=== PATIENT | male | born 1960 | race Caucasian/White ===

== ENCOUNTER 2017-02-24 16:45 | Emergency (ER) | payer OTHER ==
[2017-02-24] MEDS ORDERED: Albuterol/Ipratropium 3.0-0.5 MG/3 ML Neb Soln NEB ONE (17:09)
[2017-02-24] MEDS ORDERED: Sodium Chloride 0.9% 10 ML Syringe FLUSH PRN (17:10)
[2017-02-24] MEDS ORDERED: methylPREDNISolone Sodium Succinate 125 MG/2 ML SDV IVPUSH ONE (17:10)
[2017-02-24] MEDS ORDERED: Sodium Chloride 0.9% 2.5 ML Syringe FLUSH PRN (17:10)
[2017-02-24] MEDS ORDERED: Sodium Chloride 0.9% 1,000 ML IV ONE (17:10)
--- NOTE | 2017-02-24 17:13 | EDM.PDOC ---
ED HPI GENERAL MEDICAL PROBLEM - General Chief Complaint: Respiratory Problem Stated Complaint: COUGH/CONGESTION Time Seen by Provider: 02/24/17 17:09 - History of Present Illness INITIAL COMMENTS - FREE TEXT/NARRATIVE: HISTORY AND PHYSICAL: History of present illness: The patient is a 56-year-old male with a long history of tobacco use, up to 2 packs a day, who presents with complaints of cough that started last evening which is mostly dry and hacking but occasionally productive of phlegm. He has not had a fever nausea or vomiting. The patient says that today he has felt more short of breath especially when he is coughing but not sitting here at rest and he has no chest pain or abdominal pain. The patient says he started feeling a slight scratchiness to his throat and starting feeling rundown 2 days prior to yesterday any new "that something was going to develop". He says he doesn't have asthma or COPD and doesn't get chronic bronchitis. He is eating and drinking normally. He has not taken any [id number] medications at this point. The patient follows at [facility] with Dr. Bell. The patient denies any cardiac problems to me as well. Review of systems: As per history of present illness and below otherwise all systems reviewed and negative. Past medical history: As per history of present illness and as reviewed below otherwise noncontributory. Surgical history: As per history of present illness and as reviewed below otherwise noncontributory. Social history: No reported history of drug or alcohol abuse. Family history: As per history of present illness and as reviewed below otherwise noncontributory. Physical exam: Gen.: Well-developed well-nourished man speaking with nasal quality to voice and has a dry hacking type cough on my evaluation. On triage his O2 sat on room air was 94% but when I went in the room it was 90%. HEENT: Atraumatic, normocephalic, pupils reactive, negative for conjunctival pallor or scleral icterus, mucous membranes moist, throat clear, neck supple, nontender, trachea midline. There is no cervical adenopathy or nuchal rigidity Lungs: Clear to auscultation but very diminished throughout especially the bases and there is no stridor or wheezing and no worker breathing, breath sounds equal bilaterally, chest nontender. Heart: S1S2, regular rate and rhythm no overt murmurs Abdomen: Soft, nondistended, nontender. NABS Skin: No evidence of any diaphoresis and turgor is normal Genitourinary: Deferred. Rectal: Deferred. Extremities: Atraumatic, negative for cords or calf pain. Neurovascular unremarkable. Neuro: Awake, alert, oriented. Cranial nerves II through XII unremarkable. Cerebellum unremarkable. Motor and sensory unremarkable throughout. Exam nonfocal. Diagnostics: CBC CMP chest x-ray influenza swab Therapeutics: IV IV fluids duo neb Solu-Medrol After the nebulizer treatment patient is moving air much better with good air exchange in all marks and no wheezing or stridor. The O2 sat on room air is currently 95%. The patient states he feels significantly improved. I've talked to him about an inhaler for home with a spacer as well as prednisone and antibiotics. We are currently awaiting the chest x-ray results to determine antibiotic treatment and length. Impression: Bronchitis with bronchospasm improved, long history of tobacco use Definitive disposition and diagnosis as appropriate pending reevaluation and review of above. Generalized Pain Score (Numeric/FACES): 2 - Related Data Allergies Allergy/AdvReac Type Severity Reaction Status Date / Time No Known Allergies Allergy Verified 02/24/17 16:59 Home Meds: Home Meds . [No Known Home Meds] 02/24/17 [History] Past Medical History - Past Health History Medical/Surgical History: Denies Medical/Surgical History - Infectious Disease History Infectious Disease History: Reports: Chicken Pox Social & Family History - Family History Family Medical History: Noncontributory - Tobacco Use Smoking Status *Q: Current Every Day Smoker Years of Tobacco use: 30 Packs/Tins Daily: 1 - Caffeine Use Caffeine Use: Reports: Coffee - Recreational Drug Use Recreational Drug Use: No ED ROS GENERAL - Review of Systems Review Of Systems: ROS reveals no pertinent complaints other than HPI. ED EXAM, GENERAL - Physical Exam Exam: See Below (See dictation) Course - Vital Signs Last Recorded V/S: Last Vital Signs Temp 36.9 C 02/24/17 16:54 Pulse 85 02/24/17 18:10 Resp 16 02/24/17 18:10 BP 118/65 02/24/17 18:10 Pulse Ox 95 02/24/17 18:10 - Orders/Labs/Meds Orders: Active Orders 24 hr Category Date Time Status RT Aerosol Therapy [RC] ASDIRECTED Care 02/24/17 17:10 Active Chest 2V [CR] Stat Exams 02/24/17 17:10 Taken Sodium Chloride 0.9% [Saline Flush] Med 02/24/17 17:10 Active 10 ml FLUSH ASDIRECTED PRN Sodium Chloride 0.9% [Saline Flush] Med 02/24/17 17:10 Active 2.5 ml FLUSH ASDIRECTED PRN Saline Lock Insert [OM.PC] Stat Oth 02/24/17 17:09 Ordered Medication Orders Sodium Chloride (Saline Flush) 10 ml FLUSH ASDIRECTED PRN PRN Reason: Keep Vein Open Sodium Chloride (Saline Flush) 2.5 ml FLUSH ASDIRECTED PRN PRN Reason: Keep Vein Open Labs: Laboratory Tests 02/24/17 02/24/17 Range/Units 17:30 17:30 WBC 12.66 H (4.0-11.0) K/uL RBC 5.24 (4.50-5.90) M/uL Hgb 16.2 (13.0-17.0) g/dL Hct 47.9 (38.0-50.0) % MCV 91.4 (80.0-98.0) fL MCH 30.9 (27.0-32.0) pg MCHC 33.8 (31.0-37.0) g/dL RDW Std Deviation 46.7 (28.0-62.0) fl RDW Coeff of [place] 14 (11.0-15.0) % Plt Count 249 (150-400) K/uL MPV 10.60 (7.40-12.00) fL Neut % (Auto) 69.1 (48.0-80.0) % Lymph % (Auto) 21.3 (16.0-40.0) % [place] % (Auto) 7.7 (0.0-15.0) % Eos % (Auto) 1.3 (0.0-7.0) % Baso % (Auto) 0.6 (0.0-1.5) % Neut # (Auto) 8.8 H (1.4-5.7) K/uL Lymph # (Auto) 2.7 H (0.6-2.4) K/uL [place] # (Auto) 1.0 H (0.0-0.8) K/uL Eos # (Auto) 0.2 (0.0-0.7) K/uL Baso # (Auto) 0.1 (0.0-0.1) K/uL Nucleated RBC % 0.0 /100WBC Nucleated RBCs # 0 K/uL Sodium 140 (136-146) mmol/L Potassium 3.7 (3.5-5.1) mmol/L Chloride 104 (98-110) mmol/L Carbon Dioxide 29 (21-31) mmol/L BUN 12 (6.0-23.0) mg/dL Creatinine 1.3 (0.6-1.5) mg/dL Est Cr Clr Drug Dosing 64.20 mL/min Estimated GFR (MDRD) 57.3 ml/min Glucose 122 H (60-110) mg/dL Calcium 9.7 (8.8-10.8) mg/dL Total Bilirubin 0.3 (0.1-1.5) mg/dL AST 17 (5-40) IU/L ALT 14 (8-54) IU/L Alkaline Phosphatase 94 (40-150) Total Protein 7.3 (6.0-8.0) g/dL Albumin 4.1 (3.5-5.0) g/dL Globulin 3.2 (2.0-3.5) g/dL Albumin/Globulin Ratio 1.3 (1.3-2.8) Meds: Medications Generic Name Dose Route Start Last Admin Trade Name Freq PRN Reason Stop Dose Admin Sodium Chloride 10 ml 02/24/17 17:10 Saline Flush FLUSH ASDIRECTED PRN Keep Vein Open Sodium Chloride 2.5 ml 02/24/17 17:10 Saline Flush FLUSH ASDIRECTED PRN Keep Vein Open Discontinued Medications Generic Name Dose Route Start Last Admin Trade Name Freq PRN Reason Stop Dose Admin Albuterol/Ipratropium 3 ml 02/24/17 17:09 02/24/17 17:40 Duoneb 3.0-0.5 Mg/3 Ml NEB 02/24/17 17:10 3 ml ONETIME ONE Administration Sodium Chloride 1,000 mls @ 999 mls/hr 02/24/17 17:10 02/24/17 17:32 Normal Saline IV 02/24/17 18:10 999 mls/hr STAT ONE Administration Methylprednisolone Sodium Succinate 125 mg 02/24/17 17:10 02/24/17 17:52 Solu-Medrol IVPUSH 02/24/17 17:11 125 mg ONETIME ONE Administration Departure - Departure Time of Disposition: 18:33 Disposition: Home, Self-Care 01 Condition: Good Clinical Impression: Bronchitis, acute, with bronchospasm - Discharge Information Referrals: Luis Bell MD [Primary Care Provider] - Forms: ED Department Discharge Additional Instructions: The following information is given to patients seen in the emergency department who are being discharged to home. This information is to outline your options for follow-up care. We provide all patients seen in our emergency department with a follow-up referral. The need for follow-up, as well as the timing and circumstances, are variable depending upon the specifics of your emergency department visit. If you don't have a primary care physician on staff, we will provide you with a referral. We always advise you to contact your personal physician following an emergency department visit to inform them of the circumstance of the visit and for follow-up with them and/or the need for any referrals to a consulting specialist. The emergency department will also refer you to a specialist when appropriate. This referral assures that you have the opportunity for followup care with a specialist. All of these measure are taken in an effort to provide you with optimal care, which includes your followup. Under all circumstances we always encourage you to contact your private physician who remains a resource for coordinating your care. When calling for followup care, please make the office aware that this follow-up is from your recent emergency room visit. If for any reason you are refused follow-up, please contact the emergency department at and ask to speak to the emergency department charge nurse. [address] [place] [address] [facility] Primary care- Internal Medicine and Family [place] [id number] [place] [id number] Please use all medications as prescribed here at please try to reduce or refrain from smoking anymore. Please call and follow-up with Dr. Siewert in the clinic next week as we discussed. If you feel more comfortable you can call and see him tomorrow as he is in the clinic. Return to ER as needed and as discussed. Push hydration and try to avoid caffeinated products - My Orders Last 24 Hours: My Active Orders 02/24/17 17:09 Saline Lock Insert [OM.PC] Stat 02/24/17 17:10 RT Aerosol Therapy [RC] ASDIRECTED Chest 2V [CR] Stat Sodium Chloride 0.9% [Saline Flush] 10 ml FLUSH ASDIRECTED PRN Sodium Chloride 0.9% [Saline Flush] 2.5 ml FLUSH ASDIRECTED PRN - Assessment/Plan Last 24 Hours: My Active Orders 02/24/17 17:09 Saline Lock Insert [OM.PC] Stat 02/24/17 17:10 RT Aerosol Therapy [RC] ASDIRECTED Chest 2V [CR] Stat Sodium Chloride 0.9% [Saline Flush] 10 ml FLUSH ASDIRECTED PRN Sodium Chloride 0.9% [Saline Flush] 2.5 ml FLUSH ASDIRECTED PRN
[2017-02-24 19:27] VITALS: BP 121/74
--- NOTE | 2017-02-25 10:52 | CR ---
EXAM DATE: 02/24/17 PATIENT'S AGE: 56 Patient: RENEA STERLING Facility: [place], [place] Site . Site : 1960 Study: XRay Chest [id number]/14/2017 6:10:44 PM Ordering Physician: Baldo Richards Final Report: INDICATION: pain/sob TECHNIQUE: Chest 2 views. COMPARISON: None. FINDINGS: Cardiovascular and mediastinum: Heart size and vasculature are normal in caliber and appearance. Mediastinum is within normal limits. Lungs and pleural spaces: Lungs are clear. No sign of infiltrate or mass. No sign of pleural effusion. No pneumothorax. Bones and soft tissues: No significant findings. IMPRESSION: Unremarkable chest. Dictated by: Jacoby Molina MD @ 02/24/2017 18:31:27 (Electronic Signature) Report Signed by Proxy. [facility] SYSTEM[facility]izett
== END 2017-02-24 19:07 | disposition home or self-care (01) ==
LOC: MW.ED 16:45
DX: J20.9 Acute bronchitis, unspecified (principal); F17.210 Nicotine dependence, cigarettes, uncomplicated
CPT/HCPCS: 71020; 80053; 85025; 87804; 94664; 96361; 96374; 99283; J2930; J7040

== ENCOUNTER 2017-04-23 08:18 | Emergency (ER) | payer OTHER ==
[2017-04-23] MEDS ORDERED: Ketorolac 30 MG/ML SDV IVPUSH ONE (08:37)
[2017-04-23] MEDS ORDERED: Sodium Chloride 0.9% 10 ML Syringe FLUSH PRN (08:37)
[2017-04-23] MEDS ORDERED: Dicyclomine 10 MG Cap PO ONE (08:37)
[2017-04-23] MEDS ORDERED: Sodium Chloride 0.9% 1,000 ML IV ONE ×2 (08:37→10:40)
[2017-04-23] MEDS ORDERED: Sodium Chloride 0.9% 2.5 ML Syringe FLUSH PRN (08:37)
--- NOTE | 2017-04-23 08:39 | EDM.PDOC ---
ED HPI GENERAL MEDICAL PROBLEM - General Chief Complaint: Abdominal Pain Stated Complaint: VOMITING(COLD) Time Seen by Provider: 04/23/17 08:27 - History of Present Illness INITIAL COMMENTS - FREE TEXT/NARRATIVE: HISTORY AND PHYSICAL: History of present illness: The patient is a 56-year-old male with no abdominal surgical history and a history of a screening colonoscopy which was normal and presents with complaints of left lower abdominal pain and no bowel movement for the last 3 days. Patient had some vomiting on Tuesday when the pain started and the constipation started but has not vomited since that time. Patient has not had much of an appetite since then and has had decreased by mouth due to the discomfort and concerns. Patient has not had a fever chills cough chest pain or shortness of breath no flank pain and no urinary complaints. Patient says he normally has a bowel movement daily that is not hard and he doesn't have a history of constipation. The patient has had one episode of diverticulitis in the past was many years ago and he doesn't recall how much pain he had or the character of the pain and if this is similar. The patient tried an enema but no oral medications to try to get his bowels moving. He says it was not successful. He has not had recent black or bloody stools. Patient states he is belching but he is not passing much gas from below. Review of systems: As per history of present illness and below otherwise all systems reviewed and negative. Past medical history: As per history of present illness and as reviewed below otherwise noncontributory. Surgical history: As per history of present illness and as reviewed below otherwise noncontributory. Social history: No reported history of drug or alcohol abuse. Family history: As per history of present illness and as reviewed below otherwise noncontributory. Physical exam: Gen.: Well-developed well-nourished man who looks nontoxic and moves easily in the ED without distress. Vital signs have been reviewed by me HEENT: Atraumatic, normocephalic, negative for conjunctival pallor or scleral icterus, mucous membranes moist, throat clear, neck supple, nontender, trachea midline. Lungs: Clear to auscultation, breath sounds equal bilaterally, chest nontender. Heart: S1S2, regular, negative for clicks, rubs, or JVD. Abdomen: Soft, nondistended, nontender on deep palpation throughout exam and am unable to reproduce the pain that the patient is experiencing. There is no rebound or guarding and there are hypoactive bowel sounds. There is tympany on percussion.. Negative for masses or hepatosplenomegaly. Negative for costovertebral tenderness. Pelvis: Stable nontender. Genitourinary: Deferred. Rectal: Deferred. Extremities: Atraumatic, negative for cords or calf pain. Neurovascular unremarkable. Neuro: Awake, alert, oriented. Cranial nerves II through XII unremarkable. Cerebellum unremarkable. Motor and sensory unremarkable throughout. Exam nonfocal. Diagnostics: CBC CMP lipase UA abdominal x-rays CT scan of the abdomen and pelvis Therapeutics: IV fluids Toradol Bentyl Flomax and Levaquin In light of the patient's WBC count lipase and UA results as well as the x-ray findings will proceed to do a CAT scan of the abdomen and pelvis without contrast. I discussed with the patient these results and the current plan that we will proceed with. 1038: I discussed with Dr. Roca the urologist at [facility] this case and the findings including the WBC count the UA results and the CT scan findings. She feels that the patient can go home after a second liter of IV fluids and have strict precautions for reasons to return. He is aware of this conversation and care plan for discharge home. He is currently pain-free and we will give him urine strainers. I will give him Flomax and Cipro for home as well as [place] for pain. I have also talked him about his lipase being elevated and the need to eliminate alcohol use if he is participating and need to follow that lab test. Impression: Left ureterolithiasis, early UTI, elevated lipase etiology unclear Definitive disposition and diagnosis as appropriate pending reevaluation and review of above. abdominal Pain Score (Numeric/FACES): 8 - Related Data Allergies Allergy/AdvReac Type Severity Reaction Status Date / Time No Known Allergies Allergy Verified 04/23/17 08:26 Home Meds: Home Meds . [No Known Home Meds] 02/24/17 [History] Past Medical History - Past Health History Medical/Surgical History: Denies Medical/Surgical History - Infectious Disease History Infectious Disease History: Reports: Mumps Social & Family History - Family History Family Medical History: Noncontributory - Tobacco Use Smoking Status *Q: Current Every Day Smoker Years of Tobacco use: 30 Packs/Tins Daily: 1.5 - Caffeine Use Caffeine Use: Reports: Coffee - Recreational Drug Use Recreational Drug Use: No ED ROS GENERAL - Review of Systems Review Of Systems: ROS reveals no pertinent complaints other than HPI. ED EXAM, GENERAL - Physical Exam Exam: See Below (See dictation) Course - Vital Signs Last Recorded V/S: Last Vital Signs Temp 36.1 C 04/23/17 08:23 Pulse 79 04/23/17 10:05 Resp 18 04/23/17 10:05 BP 129/67 04/23/17 10:05 Pulse Ox 96 04/23/17 10:05 - Orders/Labs/Meds Orders: Active Orders 24 hr Category Date Time Status Abdomen 2V AP Flat Upright [CR] Stat Exams 04/23/17 08:37 Taken Abdomen Pelvis wo Cont [CT] Stat Exams 04/23/17 09:44 Taken CULTURE URINE [RM] Stat Lab 04/23/17 09:17 Received Levofloxacin [Levaquin] Med 04/23/17 11:03 Once 500 mg PO ONETIME ONE Sodium Chloride 0.9% [Normal Saline] 1,000 ml Med 04/23/17 10:40 Active IV STAT Sodium Chloride 0.9% [Saline Flush] Med 04/23/17 08:37 Active 10 ml FLUSH ASDIRECTED PRN Sodium Chloride 0.9% [Saline Flush] Med 04/23/17 08:37 Active 2.5 ml FLUSH ASDIRECTED PRN Saline Lock Insert [OM.PC] Stat Oth 04/23/17 08:36 Ordered Medication Orders Sodium Chloride (Normal Saline) 1,000 mls @ 999 mls/hr IV STAT ONE Stop: 04/23/17 11:40 Last Admin: 04/23/17 10:56 Dose: 999 mls/hr Levofloxacin (Levaquin) 500 mg PO ONETIME ONE Stop: 04/23/17 11:04 Sodium Chloride (Saline Flush) 10 ml FLUSH ASDIRECTED PRN PRN Reason: Keep Vein Open Last Admin: 04/23/17 08:51 Dose: 10 ml Sodium Chloride (Saline Flush) 2.5 ml FLUSH ASDIRECTED PRN PRN Reason: Keep Vein Open Last Admin: 04/23/17 08:52 Dose: 2.5 ml Labs: Laboratory Tests 1104/23/17 04/23/17 Range/Units 08:48 08:48 09:17 WBC 14.86 H (4.0-11.0) K/uL RBC 5.40 (4.50-5.90) M/uL Hgb 16.6 (13.0-17.0) g/dL Hct 48.5 (38.0-50.0) % MCV 89.8 (80.0-98.0) fL MCH 30.7 (27.0-32.0) pg MCHC 34.2 (31.0-37.0) g/dL RDW Std Deviation 45.0 (28.0-62.0) fl RDW Coeff of Miles 14 (11.0-15.0) % Plt Count 259 (150-400) K/uL MPV 10.70 (7.40-12.00) fL Neut % (Auto) 76.1 (48.0-80.0) % Lymph % (Auto) 11.9 L (16.0-40.0) % [place] % (Auto) 11.4 (0.0-15.0) % Eos % (Auto) 0.3 (0.0-7.0) % Baso % (Auto) 0.3 (0.0-1.5) % Neut # (Auto) 11.3 H (1.4-5.7) K/uL Lymph # (Auto) 1.8 (0.6-2.4) K/uL [place] # (Auto) 1.7 H (0.0-0.8) K/uL Eos # (Auto) 0.1 (0.0-0.7) K/uL Baso # (Auto) 0.0 (0.0-0.1) K/uL Nucleated RBC % 0.0 /100WBC Nucleated RBCs # 0 K/uL Sodium 136 (136-146) mmol/L Potassium 4.3 (3.5-5.1) mmol/L Chloride 99 (98-110) mmol/L Carbon Dioxide 28 (21-31) mmol/L BUN 19 (6.0-23.0) mg/dL Creatinine 1.7 H (0.6-1.5) mg/dL Est Cr Clr Drug Dosing 49.10 mL/min Estimated GFR (MDRD) 42.1 ml/min Glucose 111 H (60-110) mg/dL Calcium 9.5 (8.8-10.8) mg/dL Total Bilirubin 0.8 (0.1-1.5) mg/dL AST 23 (5-40) IU/L ALT 16 (8-54) IU/L Alkaline Phosphatase 95 (40-150) Total Protein 7.6 (6.0-8.0) g/dL Albumin 4.1 (3.5-5.0) g/dL Globulin 3.5 (2.0-3.5) g/dL Albumin/Globulin Ratio 1.2 L (1.3-2.8) Lipase 664 H (7-80) U/L Urine Color YELLOW Urine Appearance CLEAR Urine pH 6.0 (5.0-8.0) Ur Specific [place] 1.020 (1.001-1.035) Urine Protein NEGATIVE (NEGATIVE) mg/dL Urine Glucose (UA) NEGATIVE (NEGATIVE) mg/dL Urine Ketones NEGATIVE (NEGATIVE) mg/dL Urine Occult Blood MODERATE (NEGATIVE) Urine Nitrite NEGATIVE (NEGATIVE) Urine Bilirubin NEGATIVE (NEGATIVE) Urine Urobilinogen 0.2 (<2.0) EU/dL Ur Leukocyte Esterase NEGATIVE (NEGATIVE) Urine RBC 7-9 (0-2/HPF) Urine WBC 3-5 (0-5/HPF) Ur Epithelial Cells RARE (NONE-FEW) Urine Bacteria FEW (NEGATIVE) Meds: Medications Generic Name Dose Route Start Last Admin Trade Name Freq PRN Reason Stop Dose Admin Sodium Chloride 1,000 mls @ 999 mls/hr 04/23/17 10:40 04/23/17 10:56 Normal Saline IV 04/23/17 11:40 999 mls/hr STAT ONE Administration Levofloxacin 500 mg 04/23/17 11:03 Levaquin PO 04/23/17 11:04 ONETIME ONE Sodium Chloride 10 ml 04/23/17 08:37 04/23/17 08:51 Saline Flush FLUSH 10 ml ASDIRECTED PRN Administration Keep Vein Open Sodium Chloride 2.5 ml 04/23/17 08:37 04/23/17 08:52 Saline Flush FLUSH 2.5 ml ASDIRECTED PRN Administration Keep Vein Open Discontinued Medications Generic Name Dose Route Start Last Admin Trade Name Freq PRN Reason Stop Dose Admin Dicyclomine HCl 20 mg 04/23/17 08:37 04/23/17 08:51 Bentyl PO 04/23/17 08:38 20 mg ONETIME ONE Administration Sodium Chloride 1,000 mls @ 999 mls/hr 04/23/17 08:37 04/23/17 08:51 Normal Saline IV 04/23/17 09:37 999 mls/hr STAT ONE Administration Ketorolac Tromethamine 30 mg 04/23/17 08:37 04/23/17 08:51 Toradol IVPUSH 04/23/17 08:38 30 mg ONETIME ONE Administration Tamsulosin HCl 0.4 mg 04/23/17 10:40 04/23/17 10:56 Flomax PO 04/23/17 10:41 0.4 mg ONETIME ONE Administration Departure - Departure Time of Disposition: 11:06 Disposition: Home, Self-Care 01 Condition: Good Clinical Impression: Ureterolithiasis, Elevated lipase UTI (urinary tract infection) Qualifiers: Urinary tract infection type: site unspecified Hematuria presence: without hematuria Qualified Code(s): N39.0 - Urinary tract infection, site not specified - Discharge Information Referrals: Luis Bell MD [Primary Care Provider] - Forms: ED Department Discharge Additional Instructions: The following information is given to patients seen in the emergency department who are being discharged to home. This information is to outline your options for follow-up care. We provide all patients seen in our emergency department with a follow-up referral. The need for follow-up, as well as the timing and circumstances, are variable depending upon the specifics of your emergency department visit. If you don't have a primary care physician on staff, we will provide you with a referral. We always advise you to contact your personal physician following an emergency department visit to inform them of the circumstance of the visit and for follow-up with them and/or the need for any referrals to a consulting specialist. The emergency department will also refer you to a specialist when appropriate. This referral assures that you have the opportunity for followup care with a specialist. All of these measure are taken in an effort to provide you with optimal care, which includes your followup. Under all circumstances we always encourage you to contact your private physician who remains a resource for coordinating your care. When calling for followup care, please make the office aware that this follow-up is from your recent emergency room visit. If for any reason you are refused follow-up, please contact the [facility] emergency department at and ask to speak to the emergency department charge nurse. [facility] [address] [place], [place] [address] [facility] Specialty Care-Urology [address] [place], [place] [id number] Please call and Tuesday and make follow-up appointments with your provider at [facility] as well as our urologist as we discussed. Push hydration and avoid caffeinated products. Please use [id number] Tylenol or ibuprofen for pain and at the stronger pain medications as needed. Take antibiotics until they are finished. Take Flomax daily and strain urine each urination looking for the stone. Return to ER as needed and as we discussed. Please also have your renal function and lipase rechecked in several days with your provider to assure that these lab tests are improving. - My Orders Last 24 Hours: My Active Orders 04/23/17 08:36 Saline Lock Insert [OM.PC] Stat 04/23/17 08:37 Abdomen 2V AP Flat Upright [CR] Stat Sodium Chloride 0.9% [Saline Flush] 10 ml FLUSH ASDIRECTED PRN Sodium Chloride 0.9% [Saline Flush] 2.5 ml FLUSH ASDIRECTED PRN 04/23/17 09:17 CULTURE URINE [RM] Stat 04/23/17 09:44 Abdomen Pelvis wo Cont [CT] Stat 04/23/17 10:40 Sodium Chloride 0.9% [Normal Saline] 1,000 ml IV STAT 04/23/17 11:03 Levofloxacin [Levaquin] 500 mg PO ONETIME ONE - Assessment/Plan Last 24 Hours: My Active Orders 04/23/17 08:36 Saline Lock Insert [OM.PC] Stat 04/23/17 08:37 Abdomen 2V AP Flat Upright [CR] Stat Sodium Chloride 0.9% [Saline Flush] 10 ml FLUSH ASDIRECTED PRN Sodium Chloride 0.9% [Saline Flush] 2.5 ml FLUSH ASDIRECTED PRN 04/23/17 09:17 CULTURE URINE [RM] Stat 04/23/17 09:44 Abdomen Pelvis wo Cont [CT] Stat 04/23/17 10:40 Sodium Chloride 0.9% [Normal Saline] 1,000 ml IV STAT 04/23/17 11:03 Levofloxacin [Levaquin] 500 mg PO ONETIME ONE
[2017-04-23] MEDS ORDERED: Tamsulosin 0.4 MG Cap.ER PO ONE (10:40)
[2017-04-23] MEDS ORDERED: Levofloxacin 500 MG Tab PO ONE (11:03)
[2017-04-23 12:09] VITALS: BP 139/86
--- NOTE | 2017-04-25 10:48 | CR ---
EXAM DATE: 04/23/17 PATIENT'S AGE: 56 Patient: CHARLETTE STERLING Facility: [place], [place] Site . Site : 1960 Study: XRay Abdomen [id number]/11/2017 9:14:04 AM Ordering Physician: Baldo Richards Final Report: Indication: Pain. Technique: Two views. Impression: Air and stool through nondilated colon. No air-filled dilated small bowel. 7 x 4 mm density below the left L3 spinous process may be left-sided renal calculus. Several other densities over the expected position of mid to lower left kidney may be nephrolithiasis or within bowel contents. Vascular calcifications in the pelvis. Clinical correlation for renal colic and hematuria. CT as clinically indicated for further assessment. Dictated by Russell Franco MD @ Apr 23 2017 9:30AM (Electronic Signature) Report Signed by Proxy. YISEL
--- NOTE | 2017-04-25 10:49 | CT ---
EXAM DATE: 04/23/17 PATIENT'S AGE: 56 Patient: CHARLETTE STERLING Facility: [place], [place] Site . Site : 1960 Study: CT Abdomen/Pelvis WO CONT [id number]/11/2017 10:04:59 AM Ordering Physician: Baldo Richards Final Report: Abdominal pain. Decreased appetite. Not vomiting. Technique: Noncontrast CT abdomen and pelvis with coronal and sagittal re-formatted images obtained. Comparison: No comparison studies are available. Findings: Heart size is normal. No pericardial effusion. No pleural effusion. Minimal basilar atelectasis. Spleen unenhanced liver gallbladder, pancreas, adrenal glands appears unremarkable. Small nonobstructing right renal calculi measuring up to 5 mm. No hydronephrosis on the right. Left mild hydronephrosis and hydroureter caused by a 6 mm left proximal ureteral stone. There are additional nonobstructing renal calculi within the left kidney. Atherosclerotic calcification of the aorta, non aneurysmal. Diverticulosis. Normal appendix. No suspicious bony lesions. Impression: 1. 6 millimeters left proximal ureteral stone causing mild hydronephrosis and hydroureter. 2. Additional bilateral nonobstructing renal calculi . 3. Diverticulosis. Please note that all CT scans at this facility use dose modulation, iterative reconstruction, and/or weight-based dosing when appropriate to reduce radiation dose to as low as reasonably achievable. Dictated by Sariah Kulkarni MD @ Apr 23 2017 10:08AM (Electronic Signature) Report Signed by Proxy. YISEL
== END 2017-04-23 11:54 | disposition home or self-care (01) ==
LOC: MW.ED 08:18
DX: N13.2 Hydronephrosis with renal and ureteral calculous obstruction (principal); N39.0 Urinary tract infection, site not specified; F17.210 Nicotine dependence, cigarettes, uncomplicated
CPT/HCPCS: 36415; 74020; 74176; 80053; 81001; 83690; 85025; 87086; 96361; 96374; 99284; A9270; J1885; J7040; 99282

== ENCOUNTER 2017-07-07 20:25 | Emergency (ER) | payer OTHER ==
[2017-07-07] MEDS ORDERED: Ketorolac 30 MG/ML SDV IVPUSH ONE (20:28)
[2017-07-07] MEDS ORDERED: Sodium Chloride 0.9% 1,000 ML IV ONE (20:28)
[2017-07-07] MEDS ORDERED: Ondansetron 4 MG/2 ML SDV IVPUSH ONE (20:28)
[2017-07-07] MEDS ORDERED: Tamsulosin 0.4 MG Cap.ER PO ONE (20:30)
[2017-07-07] MEDS ORDERED: HYDROmorphone 2 MG/ML Syringe IVPUSH ONE (20:37)
--- NOTE | 2017-07-07 20:39 | EDM.PDOC ---
ED HPI GENERAL MEDICAL PROBLEM - General Chief Complaint: Abdominal Pain Stated Complaint: PT HAS KIDNEY STONES Time Seen by Provider: 07/07/17 20:27 - History of Present Illness INITIAL COMMENTS - FREE TEXT/NARRATIVE: HISTORY AND PHYSICAL: History of present illness: Patient 56-year-old male presents with concern of acute left flank and abdominal pain that came on acutely with associated nausea and vomiting he has had similar episodes in the past with urolithiasis he denies trauma fever chills or other complaints. Review of systems: As per history of present illness and below otherwise all systems reviewed and negative. Past medical history: As per history of present illness and as reviewed below otherwise noncontributory. Surgical history: As per history of present illness and as reviewed below otherwise noncontributory. Social history: No reported history of drug or alcohol abuse. Family history: As per history of present illness and as reviewed below otherwise noncontributory. Physical exam: HEENT: Atraumatic, normocephalic, pupils reactive, negative for conjunctival pallor or scleral icterus, mucous membranes moist, throat clear, neck supple, nontender, trachea midline. Lungs: Clear to auscultation, breath sounds equal bilaterally, chest nontender. Heart: S1S2, regular, negative for clicks, rubs, or JVD. Abdomen: Soft, nondistended, nonlocalized left lower quadrant abdominal pain Negative for masses or hepatosplenomegaly. Left-sided costovertebral tenderness. Pelvis: Stable nontender. Genitourinary: Deferred. Rectal: Deferred. Extremities: Atraumatic, negative for cords or calf pain. Neurovascular unremarkable. Neuro: Awake, alert, oriented. Cranial nerves II through XII unremarkable. Cerebellum unremarkable. Motor and sensory unremarkable throughout. Exam nonfocal. Diagnostics: CBC CMP UA urine culture CT abdomen and pelvis Therapeutics: Normal saline 1 L bolus Zofran 4 mg IV Toradol 30 mg IV Flomax 0.4 mg by mouth and Dilaudid 1 mg IV Impression: 1 acute left flank/abdominal pain with history of urolithiasis Definitive disposition and diagnosis as appropriate pending reevaluation and review of above. - Related Data Allergies Allergy/AdvReac Type Severity Reaction Status Date / Time No Known Allergies Allergy Verified 07/07/17 20:37 Home Meds: Home Meds . [No Known Home Meds] 02/24/17 [History] Past Medical History - Past Health History Medical/Surgical History: Denies Medical/Surgical History - Infectious Disease History Infectious Disease History: Reports: Mumps Social & Family History - Family History Family Medical History: Noncontributory - Tobacco Use Smoking Status *Q: Current Every Day Smoker Years of Tobacco use: 30 Packs/Tins Daily: 1.5 - Caffeine Use Caffeine Use: Reports: Coffee - Recreational Drug Use Recreational Drug Use: No ED ROS GENERAL - Review of Systems Review Of Systems: ROS reveals no pertinent complaints other than HPI. ED EXAM, GENERAL - Physical Exam Exam: See Below (See dictation) Course - Vital Signs Last Recorded V/S: Last Vital Signs Temp 36.1 C 07/07/17 20:37 Pulse 78 07/07/17 20:37 Resp 18 07/07/17 20:37 BP 140/91 H 07/07/17 20:37 Pulse Ox 98 07/07/17 20:37 - Orders/Labs/Meds Orders: Active Orders 24 hr Category Date Time Status Abdomen Pelvis wo Cont [CT] Stat Exams 07/07/17 20:28 Taken CULTURE URINE [RM] Stat Lab 07/07/17 21:05 Received Labs: Laboratory Tests 07/07/17 07/07/17 07/07/17 Range/Units 20:40 20:40 21:05 WBC 15.44 H (4.0-11.0) K/uL RBC 5.09 (4.50-5.90) M/uL Hgb 15.5 (13.0-17.0) g/dL Hct 45.1 (38.0-50.0) % MCV 88.6 (80.0-98.0) fL MCH 30.5 (27.0-32.0) pg MCHC 34.4 (31.0-37.0) g/dL RDW Std Deviation 46.4 (28.0-62.0) fl RDW Coeff of Miles 14 (11.0-15.0) % Plt Count 234 (150-400) K/uL MPV 10.00 (7.40-12.00) fL Neut % (Auto) 78.4 (48.0-80.0) % Lymph % (Auto) 15.0 L (16.0-40.0) % Colbert % (Auto) 5.4 (0.0-15.0) % Eos % (Auto) 0.9 (0.0-7.0) % Baso % (Auto) 0.3 (0.0-1.5) % Neut # (Auto) 12.1 H (1.4-5.7) K/uL Lymph # (Auto) 2.3 (0.6-2.4) K/uL Colbert # (Auto) 0.8 (0.0-0.8) K/uL Eos # (Auto) 0.1 (0.0-0.7) K/uL Baso # (Auto) 0.1 (0.0-0.1) K/uL Nucleated RBC % 0.0 /100WBC Nucleated RBCs # 0 K/uL Sodium 138 (136-146) mmol/L Potassium 3.8 (3.5-5.1) mmol/L Chloride 101 (98-110) mmol/L Carbon Dioxide 24 (21-31) mmol/L BUN 13 (6.0-23.0) mg/dL Creatinine 1.0 (0.6-1.5) mg/dL Est Cr Clr Drug Dosing 83.47 mL/min Estimated GFR (MDRD) > 60.0 ml/min Glucose 112 H (60-110) mg/dL Calcium 9.4 (8.8-10.8) mg/dL Total Bilirubin 0.3 (0.1-1.5) mg/dL AST 22 (5-40) IU/L ALT 27 (8-54) IU/L Alkaline Phosphatase 86 (40-150) Total Protein 7.3 (6.0-8.0) g/dL Albumin 4.4 (3.5-5.0) g/dL Globulin 2.9 (2.0-3.5) g/dL Albumin/Globulin Ratio 1.5 (1.3-2.8) Urine Color YELLOW Urine Appearance SLT CLOUDY Urine pH 5.5 (5.0-8.0) Ur Specific [employer] >= 1.030 (1.001-1.035) Urine Protein NEGATIVE (NEGATIVE) mg/dL Urine Glucose (UA) NEGATIVE (NEGATIVE) mg/dL Urine Ketones NEGATIVE (NEGATIVE) mg/dL Urine Occult Blood TRACE-LYSED (NEGATIVE) Urine Nitrite NEGATIVE (NEGATIVE) Urine Bilirubin NEGATIVE (NEGATIVE) Urine Urobilinogen 0.2 (<2.0) EU/dL Ur Leukocyte Esterase NEGATIVE (NEGATIVE) Urine RBC 2-4 (0-2/HPF) Urine WBC 0-1 (0-5/HPF) Ur Epithelial Cells RARE (NONE-FEW) Urine Bacteria 1+ H (NEGATIVE) Urine Mucus MODERATE (NONE-MOD) Meds: Medications Discontinued Medications Generic Name Dose Route Start Last Admin Trade Name Fabiola PRN Reason Stop Dose Admin Hydromorphone HCl 1 mg 07/07/17 20:37 07/07/17 20:54 Dilaudid IVPUSH 07/07/17 20:38 1 mg ONETIME ONE Administration Sodium Chloride 1,000 mls @ 999 mls/hr 07/07/17 20:28 07/07/17 20:49 Normal Saline IV 07/07/17 21:28 999 mls/hr STAT ONE Administration Ketorolac Tromethamine 30 mg 07/07/17 20:28 07/07/17 20:50 Toradol IVPUSH 07/07/17 20:29 30 mg ONETIME ONE Administration Ondansetron HCl 4 mg 07/07/17 20:28 07/07/17 20:49 Zofran IVPUSH 07/07/17 20:29 4 mg ONETIME ONE Administration Tamsulosin HCl 0.4 mg 07/07/17 20:30 07/07/17 20:54 Flomax PO 07/07/17 20:31 0.4 mg ONETIME ONE Administration Departure - Departure Time of Disposition: 22:47 Disposition: Home, Self-Care 01 Condition: Good Clinical Impression: Ureterolithiasis - Discharge Information Referrals: PCP,None [Primary Care Provider] - Forms: ED Department Discharge Additional Instructions: The following information is given to patients seen in the emergency department who are being discharged to home. This information is to outline your options for follow-up care. We provide all patients seen in our emergency department with a follow-up referral. The need for follow-up, as well as the timing and circumstances, are variable depending upon the specifics of your emergency department visit. If you don't have a primary care physician on staff, we will provide you with a referral. We always advise you to contact your personal physician following an emergency department visit to inform them of the circumstance of the visit and for follow-up with them and/or the need for any referrals to a consulting specialist. The emergency department will also refer you to a specialist when appropriate. This referral assures that you have the opportunity for followup care with a specialist. All of these measure are taken in an effort to provide you with optimal care, which includes your followup. Under all circumstances we always encourage you to contact your private physician who remains a resource for coordinating your care. When calling for followup care, please make the office aware that this follow-up is from your recent emergency room visit. If for any reason you are refused follow-up, please contact the [facility] emergency department at and asked to speak to the emergency department charge nurse. [facility] - Urology [address] [place] [id number] Hydrocodone Zofran Cipro Flomax as prescribed follow-up urology Tuesday call to schedule appointment - My Orders Last 24 Hours: My Active Orders 07/07/17 20:28 Abdomen Pelvis wo Cont [CT] Stat 07/07/17 21:05 CULTURE URINE [RM] Stat - Assessment/Plan Last 24 Hours: My Active Orders 07/07/17 20:28 Abdomen Pelvis wo Cont [CT] Stat 07/07/17 21:05 CULTURE URINE [RM] Stat
[2017-07-07 21:10] LABS: CHLORIDE,CL 101 mmol/L (98-110); SODIUM,NA 138 mmol/L (136-146)
[2017-07-07 22:49] VITALS: BP 107/73
[2017-07-07] MEDS ORDERED: Acetaminophen/HYDROcodone 325-10 MG Tab PO ONE (22:50)
--- NOTE | 2017-07-08 11:52 | CT ---
EXAM DATE: 07/07/17 PATIENT'S AGE: 56 Patient: CHARLETTE STERLING Facility: [place], [place] Site Site : 1960 Study: CT Abdomen/Pelvis [id number]/25/2018 9:08:51 PM Ordering Physician: OLGA Final Report: INDICATION: Pain. History of stones. TECHNIQUE: CT abdomen and pelvis without contrast. COMPARISON: CT abdomen and pelvis April 23, 2017. FINDINGS: Lower chest: Unremarkable. Liver: Unremarkable. Spleen: Unremarkable. Pancreas: Unremarkable. Gallbladder and bile ducts: Unremarkable. Kidneys: 6 mm stone at the left ureterovesicular junction. There is an additional 4 mm stone in the distal left ureter near the ureterovesicular junction. This causes mild left hydroureteronephrosis and perinephric stranding. Additional bilateral nonobstructing renal stones. Adrenal glands: Unremarkable. GI tract: Colonic diverticulosis without evidence of acute diverticulitis. No evidence of obstruction or acute appendicitis. Tiny hiatal hernia. No free air or free fluid. Vascular structures: Mild atherosclerotic disease. No abdominal aortic aneurysm. Lymph nodes: Unremarkable. Pelvic Organs: Unremarkable. Bones: Minimal degenerative changes of the spine. IMPRESSION: 6 mm stone at the left ureterovesicular junction and distal 4 mm left ureteral stone causing mild hydroureteronephrosis. Bilateral nonobstructing renal stones. Dictated by Patrick Sanabira MD @ 07/07/2017 9:24:56 PM Dictated by: Patrick Sanabria MD @ 07/07/2017 21:25:08 (Electronic Signature) Report Signed by Proxy. [facility] PS[facility]AT[facility]IC HOSPITALLizett
== END 2017-07-07 23:10 | disposition home or self-care (01) ==
LOC: MW.ED 20:25
DX: N13.2 Hydronephrosis with renal and ureteral calculous obstruction (principal); F17.210 Nicotine dependence, cigarettes, uncomplicated
CPT/HCPCS: 36415; 74176; 80053; 81001; 85025; 87086; 96361; 96374; 96375; 99284; A9270; J1170; J1885; J2405; J7040

== ENCOUNTER → 2021-02-04 | Day surgery (SDC) | payer OTHER ==
[~2021-02-04] MED LIST: Lactated Ringers 1,000 ML IV SCH; Lidocaine 2% 5 ML SDV ONE; Ondansetron 4 MG/2 ML SDV ONE; Propofol 200 MG/20 ML SDV ONE
--- NOTE | 2021-02-04 10:13 | PCM.PREANE ---
Preanesthetic Assessment - Anesthesia/Transfusion/Family Hx Anesthesia History: Prior Anesthesia Without Reaction Transfusion History: No Prior Transfusion(s) - Review of Systems General: No Symptoms Pulmonary: No Symptoms Cardiovascular: No Symptoms Gastrointestinal: No Symptoms Neurological: No Symptoms, Pre-Existing Deficit Other: Reports: None - Physical Assessment NPO Status Date: 02/04/21 NPO Status Time: 00:00 Height: 5 ft 9 in Weight: 223 lb ASA Class: 3 Mental Status: Alert & Oriented x3 Airway Class: Mallampati = 2 Dentition: Reports: Normal Dentition, Implants ROM/Head Extension: Full Lungs: Clear to Auscultation, Normal Respiratory Effort Cardiovascular: Regular Rate, Regular Rhythm - Allergies Allergies/Adverse Reactions: Allergies Allergy/AdvReac Type Severity Reaction Status Date / Time No Known Allergies Allergy Verified 02/04/21 10:06 PreAnesthesia Questionnaire - Past Health History Medical/Surgical History: Denies Medical/Surgical History HEENT History: Reports: Other (See Below) Other HEENT History: wears glasses Cardiovascular History: Reports: None Respiratory History: Reports: None Gastrointestinal History: Reports: Diverticulosis Genitourinary History: Reports: Renal Calculus Musculoskeletal History: Reports: None Neurological History: Reports: MS Psychiatric History: Reports: None Endocrine/Metabolic History: Reports: Obesity/BMI 30+ Hematologic History: Reports: None Immunologic History: Reports: None Oncologic (Cancer) History: Reports: None Dermatologic History: Reports: None - Infectious Disease History Infectious Disease History: Reports: Mumps - Past Surgical History Head Surgeries/Procedures: Reports: None HEENT Surgical History: Reports: Oral Surgery Other HEENT Surgeries/Procedures: dental implants Cardiovascular Surgical History: Reports: None Respiratory Surgical History: Reports: None GI Surgical History: Reports: Colonoscopy Male Surgical History: Reports: None Endocrine Surgical History: Reports: None Neurological Surgical History: Reports: None Musculoskeletal Surgical History: Reports: None Oncologic Surgical History: Reports: None Dermatological Surgical History: Reports: None - SUBSTANCE USE Tobacco Use Status *Q: Former Tobacco User Tobacco Use Within Last Twelve Months: No Days Per Week of Alcohol Use: 7 Number of Drinks Per Day: 2 Total Drinks Per Week: 14 - HOME MEDS Home Medications: Home Meds Prevagen 1 tab PO DAILY 01/29/21 [History] Tamsulosin HCl [Flomax] 0.4 mg PO DAILY 01/29/21 [History] polyethylene glycoL 3350 [MiraLAX] 1 dose PO ASDIRECTED PRN 01/29/21 [History] - CURRENT (IN HOUSE) MEDS Current Meds: Current Medications Lactated Ringer's (Ringers, Lactated) 1,000 mls @ 125 mls/hr IV ASDIRECTED RENATO
--- NOTE | 2021-02-04 12:00 | PCM.OPNOTE ---
- General Post-Op/Procedure Note Date of Surgery/Procedure: 02/04/21 Operative Procedure(s): colonoscopy with polypectomis. biopsies of colon polyp. inking of polyp Findings: Multiple colon polyps one at 80 cm was too large so was biopsied and inked diverticulosis dictation number [id number] Pre Op Diagnosis: Occ blood in stool. thinning stools Post-Op Diagnosis: Multiple colon polyps. one at 80 cm was too large so was biopsied and inked. diverticulosis Primary Surgeon: Santhosh Cohn Pathology: colon polyps Complications: None Condition: Good
--- NOTE | 2021-02-04 12:03 | PCM.POSTAN ---
POST ANESTHESIA ASSESSMENT - MENTAL STATUS Mental Status: Alert, Oriented - VITAL SIGNS Vital Signs: Last Vital Signs Temp 96.6 F L 02/04/21 10:09 Pulse 73 02/04/21 10:09 Resp 16 02/04/21 10:09 BP 108/81 02/04/21 10:09 Pulse Ox 96 02/04/21 10:09 - RESPIRATORY Respiratory Status: Respiratory Rate WNL, Airway Patent, O2 Saturation Stable - CARDIOVASCULAR CV Status: Pulse Rate WNL, Blood Pressure Stable - GASTROINTESTINAL GI Status: No Symptoms - POST OP HYDRATION Hydration Status: Adequate & Stable
--- NOTE | 2021-02-04 12:04 | PCM48HPAN ---
Post Anesthesia Note - EVALUATION WITHIN 48HRS OF ANESTHETIC Vital Signs in Normal Range: Yes Patient Participated in Evaluation: Yes Respiratory Function Stable: Yes Airway Patent: Yes Cardiovascular Function Stable: Yes Hydration Status Stable: Yes Pain Control Satisfactory: Yes Nausea and Vomiting Control Satisfactory: Yes Mental Status Recovered: Yes Vital Signs: Last Vital Signs Temp 97.3 F 02/04/21 11:59 Pulse 63 02/04/21 11:59 Resp 16 02/04/21 11:59 BP 123/68 02/04/21 11:59 Pulse Ox 99 02/04/21 11:59
[2021-02-04 13:02] VITALS: BP 110/80; PULSE 51
--- NOTE | 2021-02-05 08:13 | OR ---
SURGEON: JURGEN FALCON MD DATE OF PROCEDURE: 02/04/2021 PREOPERATIVE DIAGNOSES: 1. Occasional blood in the stool. 2. Issues with constipation and thinning of stools. POSTOPERATIVE DIAGNOSES: 1. Multiple colon polyps. 2. Diverticulosis. 3. 1 polyp was too large to resect and was biopsied in ink. PRIMARY SURGEON: Jurgen Falcon MD ANESTHESIA: With anesthesiologist. EXTENT OF COLONOSCOPY: To the cecum. BOWEL PREP: Very good. LIMITATIONS: Again, the patient had a polyp, it was too large to remove. Does appear to be likely amenable to saline lift. REASON FOR PROCEDURE: The patient is a pleasant 60-year-old gentleman whose last colonoscopy was 10 years ago. He reports he had some diverticulosis. Lately, the patient says he has been having some issues with thinning of his stool and smaller hard bowel movements. He was started on daily MiraLax and said that he was doing much better with this. He denies any family history of colon cancer. He says occasionally he gets some blood in his stool. PROCEDURE IN DETAIL: Physical examination was performed. The major risks and benefits associated with the procedure were explained to the patient in detail. The patient verbalized understanding and agreement of the same. The patient was then connected to the appropriate monitoring device and IV started. EKG, pulse, pulse oximetry, blood pressure, and capnography were monitored throughout the entire procedure. Continuous oxygen and sedation were provided by the anesthesiologist. The patient was placed in left lateral decubitus position and sedation was began. After adequate sedation was achieved, a digital rectal exam was performed. No rectal masses or polyps felt. Now, a well-lubricated Olympus colonoscope was entered in the rectum, passed under direct visualization to the level of the cecum. The cecum was identified by both visual and anatomic landmarks. Photographs were taken of the cecal cap. The scope was then slowly withdrawn in somewhat circular fashion looking at the color, texture, anatomy, and integrity of the mucosa from the cecum to the anal canal. The patient did have quite a bit liquid stool, which was suctioned and irrigated out for a good look at the mucosa. The patient did have a polyp at about 80 cm, this was removed with hot snare polypectomy, looked to be completely removed with good hemostasis. This was right in the transverse colon. Scope was withdrawn about a centimeter more and the patient had a larger sessile polyp. This appeared to be little too large to resect here, but looked like it potentially might be amenable to a saline lift, unfortunately we do not have the equipment here for that. I did do biopsies of this sessile polyp. I did ink it with carbon-based spot ink. I did do just a little distal to the polyp in 2 spots of mucosa trying to stay away from directly underneath the polyp so this will be seen and lifted if needed. The scope was continued to be withdrawn. The patient had another polyp in the sigmoid colon at about 40 cm, it was also removed with some hot snare polypectomy. Again, this was around about 45 cm. In the sigmoid colon, the patient does have diverticulosis throughout the sigmoid colon. Of note is descending and sigmoid colon . Scope was retroflexed in the rectum. He had some minimal internal hemorrhoids. Scope was completely removed and the procedure terminated. ENDOSCOPIC DIAGNOSES: 1. Diverticulosis. 2. Multiple colon polyps. One was sessile and too large to remove. It was inked. RECOMMENDATIONS: The patient will follow up in clinic to go over the pathology. The patient referred to a place that can do these larger polyps particularly with a saline lift. This again will depend on pathology. ROBER / MEMO /[id number]
== END | disposition home or self-care (01) ==
LOC: MW.SDS 09:37
PROVIDERS: ATTEND Surgery
DX: D12.5 Benign neoplasm of sigmoid colon (principal); D12.6 Benign neoplasm of colon, unspecified; K57.30 Diverticulosis of large intestine without perforation or abscess without bleeding; K59.00 Constipation, unspecified; K64.8 Other hemorrhoids; J20.9 Acute bronchitis, unspecified; E66.9 Obesity, unspecified; Z87.891 Personal history of nicotine dependence; Z79.899 Other long term (current) drug therapy; Z68.32 Body mass index [BMI] 32.0-32.9, adult
CPT/HCPCS: 45380; 45381; 45385; J2405; J2704; J7120; 00812; 88305